=== PATIENT | male | born 1985 | race Two or more races ===

== ENCOUNTER 2023-08-29 19:27 | Emergency (ER) | payer OTHER ==
[~2023-08-29] VITALS: Ht 175.3 cm; Wt 70.6 kg
[2023-08-29 19:45] VITALS: BP 130/77; PULSE 80; RESP 16; O2SAT 98
[2023-08-29] MEDS ORDERED: CEPH500C PO (22:01)
[2023-08-29] MEDS ORDERED: IBUP-1456 PO (22:01)
[2023-08-29] MEDS: TETANUS-DIPTH-ACEL PERTUSSIS 0.5ML SYR Tdap IM ONE (22:03)
== END 2023-08-29 22:19 | disposition home or self-care (01) ==
LOC: ER 19:27
DX: S61.012A Laceration without foreign body of left thumb without damage to nail, initial encounter (principal); Z79.899 Other long term (current) drug therapy; W45.8XXA Other foreign body or object entering through skin, initial encounter; Y93.89 Activity, other specified; Y92.89 Other specified places as the place of occurrence of the external cause; Y99.8 Other external cause status
CPT/HCPCS: 12002; 90471; 90715